=== PATIENT | male | born 1980 | race Caucasian/White ===

== ENCOUNTER 2021-07-14 00:48 | Day surgery (SDC) | payer OTHER, SELFPAY ==
[2021-07-05 12:44] VITALS: BMI 23.1
--- NOTE | 2021-07-14 07:27 | PM.HPGS ---
History of Present Illness History of Present Illness Consent: Risks, benefits, and alternatives have been discussed and questions answered. Patient agrees to proceed with procedure. Chief complaint: dysphagia Narrative: Som Pham is a 41 year old male with dysphagia for solid food. Review of Systems Review of Systems: All systems reviewed & are unremarkable except as noted in HPI and below PMFSH Past Medical History Medical History BMI 23.0-23.9, adult BMI 24.0-24.9, adult Cricopharyngeal spasm Encounter for preventive health examination Encounter for routine adult health examination without abnormal findings GERD (gastroesophageal reflux disease) Seasonal allergies Family History Family History Father Hyperlipidemia Social History Social History Smoking status: Never smoker Alcohol intake: current Drinks per week: 7 Substance use: never Living arrangements: with family Spiritual care concerns: No Meds Home Medications and Allergies Home Medications Medication Instructions Recorded Confirmed Type No Home Medications 06/29/21 07/14/21 History Allergies Allergy/AdvReac Type Severity Reaction Status Date / Time No Known Allergies Allergy Verified 07/14/21 10:17 Exam Const: General: alert Orientation/consciousness: patient oriented x3 Resp: Auscultation: clear to auscultation bilaterally Cardio: Rhythm: regular rhythm GI: GI Palp: Yes Soft to palpation and No Tenderness to palpation present (GI) Neuro: General: patient oriented x3 Assessment and Plan Assessment and plan (1) Dysphagia: Qualifiers: Dysphagia type: oropharyngeal phase Qualified Code(s): R13.12 - Dysphagia, oropharyngeal phase Code(s): R13.10 - Dysphagia, unspecified Status: Acute Assessment and Plan: EGD with possible biopsy or dilatation or cautery.
[2021-07-14 10:19] VITALS: BP 117/68; PULSE 50; RESP 18; TEMP 36.4; O2SAT 100
[2021-07-14] MEDS: LACTATED RINGERS 1,000 ML 150 ML IV CONT (10:33)
--- NOTE | 2021-07-14 11:31 | WPDANESEPPF ---
Anes - Initial Pre Proc Eval Procedure: Operation Date: 07/14/21 11:30 Proposed Procedures p Esophagogastroduodenoscopy - Jonathan Mitchell MD Date/Time: 07/14/21 11:31 Surgeon: Jonathan Mitchell MD Pre Op Diagnosis: dysphagia Patient Data Age: 41 Gender: M Height: 1.78 m Weight: 74.6 kg Last Vital Signs Temp 97.5 F L 07/14/21 10:19 Pulse 50 L 07/14/21 10:19 Resp 18 07/14/21 10:19 BP 117/68 07/14/21 10:19 Pulse Ox 100 07/14/21 10:19 Allergies Allergy/AdvReac Type Severity Reaction Status Date / Time No Known Allergies Allergy Verified 07/14/21 10:17 Home Medications Medication Instructions Recorded Confirmed Type No Home Medications 06/29/21 07/14/21 History Patient hx anesthesia problems: none Family hx anesthesia problems: none Results Review: All pre-operative results and documents have been reviewed as part of the pre-operative evaluation. [facility] Past Medical History Medical History BMI 23.0-23.9, adult BMI 24.0-24.9, adult Cricopharyngeal spasm Encounter for preventive health examination Encounter for routine adult health examination without abnormal findings GERD (gastroesophageal reflux disease) Seasonal allergies Family History Family History Father Hyperlipidemia Social History Social History Smoking status: Never smoker Alcohol intake: current Drinks per week: 7 Substance use: never Living arrangements: with family Spiritual care concerns: No Anes - Eval Final PreProcedure Day of Procedure 07/14/21 11:31 Patient weight: normal Heart: regular rate and rhythm Lungs: clear to auscultation Airway: Mallampati scale class II Neurological: alert and oriented Last oral intake: >/= 8 hours ASA classification: II Emergent: no Anesthetic plan: proceed Anesthesia type and monitoring: general GIVS and standard monitoring Results Review: All pre-operative results and documents have been reviewed as part of the pre-operative evaluation. Informed Consent: The patient's anesthetic plan and its attendant risks and benefits were discussed with the patient/family/POA. Questions were solicited and answers provided to the satisfaction of the patient/family/POA.
[2021-07-14] MEDS: BENZOCAINE (*SP) 60 ML SPRAY CAN (HURRICAINE) 1 SPRAY MUCOUS MEM (11:36)
[2021-07-14 11:52] VITALS: BP 115/70; PULSE 68; RESP 10; O2SAT 97
[2021-07-14 12:02] VITALS: BP 119/67; PULSE 64; RESP 11; O2SAT 98
[2021-07-14 12:12] VITALS: BP 117/75; PULSE 74; RESP 18; O2SAT 100
== END 2021-07-14 12:37 | disposition home or self-care (01) ==
PROVIDERS: PCP Internal Medicine; Visit Provider Internal Medicine Gastroenterology
PROC: 0DJ08ZZ Inspection of Upper Intestinal Tract, Via Natural or Artificial Opening Endoscopic (ICD-10-PCS; CPT 43235; principal; 2021-07-14 11:30)
DX: K22.2 Esophageal obstruction (principal); K29.70 Gastritis, unspecified, without bleeding; K21.00 Gastro-esophageal reflux disease with esophagitis, without bleeding
CPT/HCPCS: 43239; 43249; 87081; 88305; C1726; J2704; J7120

== ENCOUNTER 2021-09-22 00:12 | Day surgery (SDC) | payer OTHER, SELFPAY ==
[2021-09-06 14:28] VITALS: BMI 23.3
[2021-09-22 06:57] VITALS: BP 108/54; PULSE 54; RESP 18; TEMP 36.6; O2SAT 99
[2021-09-22] MEDS: LACTATED RINGERS 1,000 ML 150 ML IV CONT (07:10)
--- NOTE | 2021-09-22 07:50 | PM.HPGS ---
History of Present Illness History of Present Illness Consent: Risks, benefits, and alternatives have been discussed and questions answered. Patient agrees to proceed with procedure. Chief complaint: esophageal stricture, esophagitis Narrative: Som Pham is a 41 year old male with diagnosed of EoE 06/2021 after had egd with bx, also ring at [facility] dilated with 18mm balloon. He is not taking pantoprazole and doing better without recent dysphagia. Review of Systems Constitutional: Constitutional: Denies headache(s) and Denies weakness Eyes: Eyes: Denies blurry vision ENT: Reports Normal hearing present, Denies headache(s) and Denies neck pain Cardiovascular: Cardiovascular: Denies chest pain and Denies dyspnea Respiratory: Respiratory: Denies dyspnea Gastrointestinal: Gastrointestinal: Reports no additional gastrointestinal complaints Genitourinary: Genitourinary: Denies dysuria Musculoskeletal: Musculoskeletal: Denies neck pain Integumentary/Breasts: Skin/Breast: Denies dry skin Neurologic: Reports Normal hearing present, Denies headache(s) and Denies weakness Psychiatric: Psychiatric: Denies anxiety Endocrine: Endocrine: Denies change in body appearance Hematologic/Lymphatic: Hematologic/Lymphatic: Denies easy bleeding Allergic/Immunologic: Allergic/Immunologic: Denies urticaria PMFSH Past Medical History Medical History (Updated 09/22/21 @ 07:52 by Robert Ocasio MD) BMI 23.0-23.9, adult BMI 24.0-24.9, adult Cricopharyngeal spasm Encounter for preventive health examination Encounter for routine adult health examination without abnormal findings Eosinophilic esophagitis GERD (gastroesophageal reflux disease) Seasonal allergies Family History Family History Father Hyperlipidemia Social History Social History Smoking status: Never smoker Alcohol intake: current Drinks per week: 5 Substance use: never Substance use type: does not use Living arrangements: with family Spiritual care concerns: No Meds Home Medications and Allergies Home Medications Medication Instructions Recorded Confirmed Type pantoprazole 40 mg PO DAILY 30 Days #30 tablet 07/14/21 09/22/21 Rx Allergies Allergy/AdvReac Type Severity Reaction Status Date / Time No Known Allergies Allergy Verified 09/22/21 06:55 Vital Signs Vital Signs - 24 hr 09/22/21 06:57 Temperature 97.8 F Pulse Rate 54 L Respiratory Rate 18 Blood Pressure 108/54 L Pulse Oximetry 99 Exam Const: General: comfortable and no acute distress HENMT: General nose exam: Normal nares present Eyes: General: appearance normal, both eyes and all related structures Neck: Neck: no JVD Resp: Auscultation: clear to auscultation bilaterally Cardio: Rate: regular rate Rhythm: regular rhythm GI: Inspection: non-distended GI Palp: Yes Soft to palpation Skin: General skin exam: normal color Neuro: General: gait normal Speech: normal speech Extrem: General: normal to inspection Psych: Mental Status: mental status grossly normal Assessment and Plan Assessment and plan (1) Eosinophilic esophagitis: Code(s): K20.0 - Eosinophilic esophagitis Status: Acute Assessment and Plan: already on ppi (2) Dysphagia: Qualifiers: Dysphagia type: oropharyngeal phase Qualified Code(s): R13.12 - Dysphagia, oropharyngeal phase Code(s): R13.10 - Dysphagia, unspecified Status: Acute Assessment and Plan: better, will reassess with egd and consider possible dilation based on findings (had ring last time)
--- NOTE | 2021-09-22 07:53 | WPDANESEPPF ---
Anes - Initial Pre Proc Eval Procedure: Operation Date: 09/22/21 08:00 Proposed Procedures p Esophagogastroduodenoscopy - Robert Ocasio MD Date/Time: 09/22/21 07:53 Surgeon: Robert Ocasio MD Pre Op Diagnosis: esophageal stricture, esophagitis Patient Data Age: 41 Gender: M Height: 1.75 m Weight: 73.5 kg Last Vital Signs Temp 97.8 F 09/22/21 06:57 Pulse 54 L 09/22/21 06:57 Resp 18 09/22/21 06:57 BP 108/54 L 09/22/21 06:57 Pulse Ox 99 09/22/21 06:57 Allergies Allergy/AdvReac Type Severity Reaction Status Date / Time No Known Allergies Allergy Verified 09/22/21 06:55 Home Medications Medication Instructions Recorded Confirmed Type pantoprazole 40 mg PO DAILY 30 Days #30 tablet 07/14/21 09/22/21 Rx Patient hx anesthesia problems: none Family hx anesthesia problems: none Results Review: All pre-operative results and documents have been reviewed as part of the pre-operative evaluation. [facility] Past Medical History Medical History (Updated 09/22/21 @ 07:52 by Robert Ocasio MD) BMI 23.0-23.9, adult BMI 24.0-24.9, adult Cricopharyngeal spasm Encounter for preventive health examination Encounter for routine adult health examination without abnormal findings Eosinophilic esophagitis GERD (gastroesophageal reflux disease) Seasonal allergies Family History Family History Father Hyperlipidemia Social History Social History Smoking status: Never smoker Alcohol intake: current Drinks per week: 5 Substance use: never Substance use type: does not use Living arrangements: with family Spiritual care concerns: No Anes - Eval Final PreProcedure Day of Procedure 09/22/21 07:53 Patient weight: normal Heart: regular rate and rhythm Lungs: clear to auscultation Airway: Mallampati scale class II Neurological: alert and oriented Last oral intake: >/= 8 hours ASA classification: II Emergent: no Anesthetic plan: proceed Anesthesia type and monitoring: general GIVS and standard monitoring Results Review: All pre-operative results and documents have been reviewed as part of the pre-operative evaluation. Informed Consent: The patient's anesthetic plan and its attendant risks and benefits were discussed with the patient/family/POA. Questions were solicited and answers provided to the satisfaction of the patient/family/POA.
[2021-09-22 08:12] VITALS: BP 102/67; PULSE 76; RESP 25; O2SAT 96
[2021-09-22 08:22] VITALS: BP 107/67; PULSE 75; RESP 13; O2SAT 98
[2021-09-22 08:32] VITALS: BP 100/74; PULSE 68; RESP 16; O2SAT 97
== END 2021-09-22 08:38 | disposition home or self-care (01) ==
PROVIDERS: PCP Internal Medicine; Visit Provider Internal Medicine Gastroenterology
PROC: 0DJ08ZZ Inspection of Upper Intestinal Tract, Via Natural or Artificial Opening Endoscopic (ICD-10-PCS; CPT 43235; principal; 2021-09-22 08:00)
DX: R13.13 Dysphagia, pharyngeal phase (principal); K29.50 Unspecified chronic gastritis without bleeding; K20.0 Eosinophilic esophagitis
CPT/HCPCS: 43239; 88305; J2704; J7120

== ENCOUNTER 2023-05-11 08:00 | Outpatient (NON) | payer OTHER, SELFPAY | END 2023-05-11 08:01 | disposition home or self-care (01) | LOC: ANHLAB 05-12 10:11 | PROVIDERS: PCP Internal Medicine; Visit Provider Internal Medicine Gastroenterology | DX: R13.10 Dysphagia, unspecified (principal); K20.90 Esophagitis, unspecified without bleeding | CPT/HCPCS: 88305 ==

== ENCOUNTER 2023-05-11 09:54 | Day surgery (SDC) | payer OTHER, SELFPAY ==
[2023-04-26 09:38] VITALS: BMI 23.5
[2023-04-28 11:05] VITALS: BMI 23.8
--- NOTE | 2023-05-10 13:57 | WPDANESEPPF ---
Anes - Initial Pre Proc Eval Procedure: Operation Date: 05/11/23 11:30 Proposed Procedures p Esophagogastroduodenoscopy - Jonathan Mitchell MD Date/Time: 05/10/23 13:57 Surgeon: Jonathan Mitchell MD Pre Op Diagnosis: Eosinophilic Esophagitis and Solomon's Patient Data Age: 43 Gender: M Height: 1.75 m Weight: 73 kg Allergies Allergy/AdvReac Type Severity Reaction Status Date / Time No Known Allergies Allergy Verified 05/11/23 10:30 Home Medications Medication Instructions Recorded Confirmed Type cholecalciferol (vitamin D3) 50 50 mcg PO DAILY 06/29/22 05/11/23 History mcg (2,000 unit) capsule pantoprazole 40 mg tablet,delayed 40 mg PO DAILY 30 days #30 tabs 10/28/22 05/11/23 Rx release Patient hx anesthesia problems: none Family hx anesthesia problems: none Results Review: All pre-operative results and documents have been reviewed as part of the pre-operative evaluation. [facility] Past Medical History Medical History Allergic conjunctivitis of both eyes Barretts esophagus BMI 22.0-22.9, adult BMI 23.0-23.9, adult BMI 24.0-24.9, adult Cricopharyngeal spasm Encounter for preventive health examination Encounter for routine adult health examination without abnormal findings Eosinophilic esophagitis GERD (gastroesophageal reflux disease) Seasonal allergies Family History Family History Father Hyperlipidemia Social History Social History Smoking status: Never smoker Alcohol intake: current Drinks per week: 5 Substance use: never Substance use type: does not use Living arrangements: with family Spiritual care concerns: No Anes - Eval Final PreProcedure Day of Procedure 05/10/23 13:57 Patient weight: normal Heart: regular rate and rhythm Lungs: clear to auscultation and normal air movement Airway: Mallampati scale class II Neurological: alert and oriented Last oral intake: >/= 8 hours ASA classification: II Emergent: no Anesthetic plan: proceed Anesthesia type and monitoring: general GIVS and standard monitoring Results Review: All pre-operative results and documents have been reviewed as part of the pre-operative evaluation. Informed Consent: The patient's anesthetic plan and its attendant risks and benefits were discussed with the patient/family/POA. Questions were solicited and answers provided to the satisfaction of the patient/family/POA.
[2023-05-11 10:31] VITALS: BP 138/94; PULSE 47; RESP 16; TEMP 36.8; O2SAT 100
[2023-05-11] MEDS: LACTATED RINGERS 1,000 ML 150 ML IV CONT (10:43)
--- NOTE | 2023-05-11 10:50 | PM.HPGS ---
History of Present Illness History of Present Illness Consent: Risks, benefits, and alternatives have been discussed and questions answered. Patient agrees to proceed with procedure. Chief complaint: Eosinophilic Esophagitis and Solomon's Narrative: Som Pham is a 43 year old male with Barretts esophagus diagnosed about 2 years ago. He also has eosinophilic esophagitis found on endoscopy. He has been doing very well in terms of his swallowing while he takes pantoprazole. No recent dysphagia. Occasionally however at night he will feel as though he is having acid reflux coming up into his chest. Review of Systems Review of Systems: All systems reviewed & are unremarkable except as noted in HPI and below PMFSH Past Medical History Medical History Allergic conjunctivitis of both eyes Barretts esophagus BMI 22.0-22.9, adult BMI 23.0-23.9, adult BMI 24.0-24.9, adult Cricopharyngeal spasm Encounter for preventive health examination Encounter for routine adult health examination without abnormal findings Eosinophilic esophagitis GERD (gastroesophageal reflux disease) Seasonal allergies Family History Family History Father Hyperlipidemia Social History Social History Smoking status: Never smoker Alcohol intake: current Drinks per week: 5 Substance use: never Substance use type: does not use Living arrangements: with family Spiritual care concerns: No Meds Home Medications and Allergies Home Medications Medication Instructions Recorded Confirmed Type cholecalciferol (vitamin D3) 50 50 mcg PO DAILY 06/29/22 05/11/23 History mcg (2,000 unit) capsule pantoprazole 40 mg tablet,delayed 40 mg PO DAILY 30 days #30 tabs 10/28/22 05/11/23 Rx release Allergies Allergy/AdvReac Type Severity Reaction Status Date / Time No Known Allergies Allergy Verified 05/11/23 10:30 Vital Signs Vital Signs - 24 hr 05/11/23 10:31 Temperature 36.8 C Pulse Rate 47 L Respiratory Rate 16 Blood Pressure 138/94 H Pulse Oximetry 100 Oxygen Delivery Room Air Exam Const: General: alert Orientation/consciousness: patient oriented x3 Resp: Auscultation: clear to auscultation bilaterally Cardio: Rhythm: regular rhythm GI: GI Palp: Yes Soft to palpation and No Tenderness to palpation present (GI) Neuro: General: patient oriented x3 Assessment and Plan Assessment and plan (1) Barretts esophagus: Code(s): K22.70 - Solomon's esophagus without dysplasia Status: Acute Assessment and Plan: EGD with possible biopsy or dilatation or cautery.
[2023-05-11 11:30] VITALS: BP 107/55; PULSE 61; RESP 15; O2SAT 100
[2023-05-11 11:40] VITALS: BP 100/54; PULSE 60; RESP 14; O2SAT 100
[2023-05-11 11:50] VITALS: BP 113/79; PULSE 60; RESP 15; O2SAT 100
--- NOTE | 2023-05-11 12:21 | WPDANESPN ---
Anes - Prog Note Post-Op Date/Time: 05/11/23 12:21 Cardiovascular status: normal Respiratory status: normal Airway patency: baseline Mental status: baseline Post-Op hydration status: normal Vital Signs: Last Vital Signs Temp 36.8 C 05/11/23 10:31 Pulse 60 05/11/23 11:50 Resp 15 05/11/23 11:50 BP 113/79 05/11/23 11:50 Pulse Ox 100 05/11/23 11:50 O2 Del Method Room Air 05/11/23 11:50 Pain Score (VAS): 0 I/O: Intake & Output 05/10/23 05/11/23 05/11/23 23:59 07:59 15:59 Intake Total 400 Balance 400 Post-procedural complaints: none Patient Feedback: Patient satisfied with anesthetic care. Other Findings: Patient vital signs back to baseline. Patient denies nausea and vomiting. Patient's pain under control. Patient OK for discharge.
== END 2023-05-11 12:07 | disposition home or self-care (01) ==
PROVIDERS: PCP Internal Medicine; Visit Provider Internal Medicine Gastroenterology
PROC: 0DJ08ZZ Inspection of Upper Intestinal Tract, Via Natural or Artificial Opening Endoscopic (ICD-10-PCS; CPT 43235; principal; 2023-05-11 11:30)
DX: K21.9 Gastro-esophageal reflux disease without esophagitis (principal); Z87.19 Personal history of other diseases of the digestive system
CPT/HCPCS: 43239